=== PATIENT | male | born 1955 ===

== ENCOUNTER 2023-05-19 05:41 | Observation (INO) ==
[2023-05-19] MEDS ORDERED: Lactated Ringers 1000 ml BAG 1,000 ML IV SCH (06:00)
[2023-05-19] MEDS ORDERED: Buffered Lidocaine 1% SYRIN 1 ml INTRADERM ONE (06:00)
[2023-05-19] MEDS ORDERED: Famotidine IV 10 MG/ML 2 ml VIAL (20 mg) IV ONE (06:00)
[2023-05-19] MEDS ORDERED: cefTRIAXone 2 gm/50 mL D5W 2 GM/50 ML BAG IV ONE (06:20)
[2023-05-19] MEDS ORDERED: Famotidine IV 10 MG/ML 2 ml VIAL (20 mg) ONE (06:20)
[2023-05-19] MEDS ORDERED: Propofol 10 MG/ML 20 ML BTL ONE (06:54)
[2023-05-19] MEDS ORDERED: Lidocaine 2% PF 5 ML VIAL ONE (06:55)
[2023-05-19 06:56] LABS: Rapid COVID-19 Molecular Undetected (Undetected)
[2023-05-19] MEDS ORDERED: fentaNYL 250 mcg/5 ml 50 MCG/ML 5 ml VIAL (250 MCG) ONE (06:56)
[2023-05-19] MEDS ORDERED: Midazolam 2 mg/2 ml VIAL 1 mg/ml 2 ml VIAL (2 mg) ONE ×2 (07:01→07:58)
[2023-05-19] MEDS ORDERED: Bupivacaine 0.5% SDV PF 30ML VIAL ONE (07:46)
[2023-05-19] MEDS ORDERED: Ondansetron 4 mg VIAL 2 MG/ML 2 ml VIAL ONE (08:22)
[2023-05-19] MEDS ORDERED: fentaNYL 100 mcg/2 ml 50 MCG/ML VIAL IV PRN (08:30)
[2023-05-19] MEDS ORDERED: Ondansetron 4 mg VIAL 2 MG/ML 2 ml VIAL IV PRN (08:30)
[2023-05-19] MEDS ORDERED: Dexamethasone IV 4 MG/ML VIAL 1 ml VIAL ONE (08:30)
[2023-05-19] MEDS ORDERED: Naloxone 0.4 mg VIAL 0.4 mg/ml 1 ml VIAL IV PRN (08:30)
[2023-05-19] MEDS ORDERED: oxyCODONE/Acetamin 5/325 mg TAB PO PRN ×2 (13:05→23:48)
[2023-05-19] MEDS: NS 0.9% 1,000 ML IV SCH ×2 (13:11→20:30)
[2023-05-19] MEDS: Lidocaine 2% JELLY 6 ML Topical TOPICAL PRN ×2 (16:11→23:25)
[2023-05-20] MEDS ORDERED: CMCS: Pravastatin 20 mg TAB (NF) PO SCH (01:00)
[2023-05-20] MEDS: NS 0.9% 1,000 ML IV SCH (02:42)
[2023-05-20] MEDS ORDERED: cefTRIAXone 1 GM Q24H (ADVAN) IVPB ONE (07:00)
[2023-05-20 10:20] VITALS: BP 159/79
== END 2023-05-20 12:23 | disposition home or self-care (01) ==
LOC: SSU 05:41 → OR 05:41
PROVIDERS: ADMIT Urology; ATTEND Urology